=== PATIENT | male | born 1955 | race Caucasian/White ===

== ENCOUNTER 2017-11-01 08:46 | Emergency (ER) | payer BC ==
--- NOTE | 2017-11-01 09:05 | Emergency Department Record ---
History of Present Illness - General Chief Complaint: Chest Pain Stated Complaint: CHEST PAIN Time Seen by Provider: 11/01/17 09:01 Source: Patient Mode of Arrival: Ambulatory Limitations: No limitations - History of Present Illness Initial Comments: The patient is here due to having some mild difficulty breathing last night which kept him from sleeping. Today it is better and presently it did resolve. He also has had some vague L anterior lower chest discomfort that is intermittent but that is gone also. The chest discomfort has been a chronic problem for him and is not related to exertion or activity. There has been no reported sweating, nausea, lightheadedness or BAUTISTA. Presently the patient is feeling very well and denies any symptoms. His only cardiac risk factors is his mother having cardiac issues. Onset/Timin -: Days(s) Onset: Awoke with symptoms Pain Location: Left chest Pain Radiation: None Severity: Mild Severity scale (1-10): 1 Improves With: Nothing Worsens With: Nothing Treatments Prior to Arrival: None - Related Data Home Medications Medication Instructions Recorded Confirmed Last Taken No Home Med [NO HOME MEDS] 11/01/17 11/01/17 Unknown Allergies Allergy/AdvReac Type Severity Reaction Status Date / Time No Known Drug Allergies Allergy Verified 11/01/17 08:50 Travel Screening - Travel/Exposure Within Last 30 Days Have you traveled within the last 30 days?: No Review of Systems Constitutional: Denies: Chills, Fever Eyes: Denies: Eye discharge ENT: Denies: Congestion Respiratory: Denies: Cough, Dyspnea Cardiovascular: Denies: Arrhythmia, Chest pain, Dyspnea on exertion Endocrine: Denies: Fatigue Gastrointestinal: Denies: Abdominal pain Genitourinary: Denies: Dysuria Musculoskeletal: Denies: Arthralgia Past Medical History - SOCIAL HISTORY Smoking Status: Never smoker Alcohol Use Comment: 4 beers/day Drug Use: None - RESPIRATORY Hx Respiratory Disorders: Yes Hx Sleep Apnea: Yes Hx of CPAP: Yes - CARDIOVASCULAR Hx Cardio Disorders: No - NEURO Hx Neuro Disorders: Yes Comment:: HX: Meniere's disease - GI Hx GI Disorders: No - Hx Genitourinary Disorders: No - ENDOCRINE Hx Endocrine Disorders: No - MUSCULOSKELETAL Hx Musculoskeletal Disorders: Yes Hx Back Injury: Yes - PSYCH Hx Psych Problems: Yes Hx Depression: Yes - HEMATOLOGY/ONCOLOGY Hx Hematology/Oncology Disorders: No Family Medical History Any Significant Family History?: Yes Hx Heart Disease: Mother, Brother/Sister *Heart Comment: [place] Physical Exam - General General Appearance: Alert, Oriented x3, Cooperative, No acute distress - Head Head exam: Atraumatic, Normocephalic, Normal inspection - Eye Eye exam: Normal appearance, PERRL - ENT Throat exam: Normal inspection. negative: Tonsillar erythema, Tonsillar exudate - Neck Neck exam: Normal inspection, Full ROM. negative: Tenderness - Respiratory Respiratory exam: Normal lung sounds bilaterally. negative: Respiratory distress - Cardiovascular Cardiovascular Exam: Regular rate, Normal rhythm, Normal heart sounds - GI/Abdominal GI/Abdominal exam: Soft, Normal bowel sounds. negative: Tenderness - Extremities Extremities exam: Normal inspection, Full ROM, Normal capillary refill. negative: Tenderness - Neurological Neurological exam: Alert, Normal gait, Oriented X3. negative: Abnormal gait, Motor sensory deficit - Skin Skin exam: negative: Rash Course Vital Signs 11/01/17 08:47 Temperature 97.8 F Pulse Rate 56 L Respiratory 18 Rate Blood Pressure 142/98 Pulse Ox 98 - Reevaluation(s) Reevaluation #1: The patient is doing very well at this time. He denies any CP, SOB, NICOLETTE, or pleuritic pain. I did explain to him that his tests are all WNL's. Due to his age and family hx I did recommend a short stay hospital admission to R/O [place] and for an echo. The patient is refusing that plan and would like to see his PCP as an outpatient. I did explain to him that the risks of leaving are that he could go home and have an [place], become disabled, have a stroke, and even . The patient presently has proper decision making capacity and accepts the risks. He was directed to return to the ER at ANY time for recheck for any problems. 11/01/17 10:02 Medical Decision Making - Data Complexity MDM Data: EKG Ordered and/or Reviewed - Lab Data Result diagrams: 11/01/17 09:00 11/01/17 09:00 - EKG Data -: EKG Interpreted by Me EKG: No Acute Changes, Normal EKG Disposition Disposition: Discharge Clinical Impression: Dyspnea, unspecified Qualifiers: Dyspnea type: unspecified Qualified Code(s): R06.00 - Dyspnea, unspecified Disposition: Home, Self-Care Condition: (2) Stable Instructions: Dyspnea (ED) Additional Instructions: Please continue your regular medicines and see your family doctor later this week. Please return to the ER for any chest pain, trouble breathing, sweating or shortness of breath with exertion. Forms: Patient Portal Access Time of Disposition: 10:02 Quality - Quality Measures Quality Measures: N/A - Blood Pressure Screening View Details: Yes Does Patient Have Any of the Following: No Blood Pressure Classification: Hypertensive Reading Systolic Measurement: 142 Diastolic Measurement: 98 Screening for High Blood Pressure: < First Hypertensive BP, F/U Documented > [ [id number]] First Hypertensive Follow-up Interventions: Referral to alternative/primary care provider.
[2017-11-01] MEDS ORDERED: ASPIRIN 325 MG TABLET PO ONE (09:12)
[2017-11-01 09:19] LABS: BASO % 0.8 % (0-6); EOS % 3.8 % (0-6); GRAN % 39.4 % (47-80); HEMATOCRIT 45.7 % (42.0-52.0); LYMPH % 46.6 % (16-45); MEAN CELL VOLUME 88.6 fl (81-97); MEAN PLATELET VOLUME 10.2 fl (7.4-10.4); MONO % 9.4 % (0-9); PLATELET COUNT 229 K/uL (130-400); RED BLOOD COUNT 5.16 M/uL (4.40-5.70); RED CELL DISTRIBUTION WIDTH 13.2 % (11.5-14.5); WHITE BLOOD COUNT W/O DIFF 5.2 K/uL (4.2-12.2)
[2017-11-01 09:34] LABS: BLOOD UREA NITROGEN 18 mg/dL (8-23); CREATININE 0.8 mg/dL (0.7-1.2); EST GLOMERULAR FILTRATION RATE > 60 mL/min
[2017-11-01 09:37] LABS: GLUCOSE,RANDOM 99 mg/dL (74-109)
[2017-11-01 09:40] LABS: CREATINE PHOSPHOKINASE 253 U/L (39-308)
[2017-11-01 09:42] LABS: CKMB 2.8 ng/mL (<6.73)
--- NOTE | 2017-11-02 09:04 | RADIOLOGY REPORT ---
EXAM: CHEST, TWO VIEWS HISTORY: DIFFICULTY IN BREATHING, SHORTNESS OF BREATH, CHEST PAIN. TECHNIQUE: PA and lateral views of the chest were obtained. Comparison: Two view chest 02/22/15. FINDINGS: The heart size is stable, within normal limits. The lungs appear expanded with no acute infiltrate seen. No pleural effusion or pneumothorax evident. Mild thoracic curve to the right. Slight elevation of the left hemidiaphragm laterally again noted. IMPRESSION: SLIGHT ELEVATION LEFT HEMIDIAPHRAGM ANTERIORLY. MILD THORACIC CURVE TO THE RIGHT. NO ACUTE INFILTRATE EVIDENT. JOB NUMBER: [id number] MTDD
== END 2017-11-01 10:32 | disposition home or self-care (01) ==
LOC: ER 08:46
DX: R07.89 Other chest pain (principal); R06.00 Dyspnea, unspecified
CPT/HCPCS: 71046; 80048; 82550; 82553; 84484; 85025; 93005; 93010; 99284